=== PATIENT | male | born 1930 | race Caucasian/White ===

== ENCOUNTER 2018-04-10 17:05 | Emergency (ER) | payer MEDICARE, OTHER ==
[~2018-04-10] VITALS: Ht 193 cm; Wt 99.8 kg
[2018-04-10] MEDS ORDERED: GUAI5SYR PO (17:28)
[2018-04-10] MEDS ORDERED: TAMS-12 PO (17:28)
[2018-04-10] MEDS ORDERED: RIVA10TA PO (17:28)
[2018-04-10] MEDS ORDERED: FURO80TA85 PO (17:28)
[2018-04-10] MEDS ORDERED: LACT10SO PO (17:28)
[2018-04-10] MEDS ORDERED: POTA10TA15 PO (17:28)
[2018-04-10] MEDS ORDERED: DOCU-141 PO (17:28)
[2018-04-10] MEDS ORDERED: DILT240C2 PO (17:28)
[2018-04-10] MEDS ORDERED: FINA5TAB11 PO (17:28)
[2018-04-10] MEDS ORDERED: FURO-144 PO (17:28)
[2018-04-10] MEDS ORDERED: CITA10TA9 PO (17:28)
[2018-04-10] MEDS ORDERED: DOXY100C2 PO (17:28)
[2018-04-10 17:31] LABS: BASOPHILS # (AUTO) 0.1 /CMM (0.0-0.2); BASOPHILS % (AUTO) 1.1 % (0.0-2.0); EOSINOPHILS % (AUTO) 6.2 % (0.0-6.0); HEMATOCRIT 32 % (39-51); HEMOGLOBIN 10.3 g/dL (13.5-17.5); LYMPHOCYTES # (AUTO) 1.1 /CMM (0.8-4.8); LYMPHOCYTES % (AUTO) 18.2 % (20.0-44.0); MEAN CORPUSCULAR HGB CONC 32 g/dl (31.0-36.0); MEAN CORPUSCULAR VOLUME 104 fL (80-96); MONOCYTES # (AUTO) 0.5 /CMM (0.1-1.30); MONOCYTES % (AUTO) 7.4 % (2.0-12.0); NEUTROPHILS # (AUTO) 4.1 /CMM (1.8-8.9); NEUTROPHILS % (AUTO) 67.1 % (43.0-81.0); PLATELET COUNT (AUTO) 295 /CMM (150-450); RED BLOOD CELL COUNT(AUTO) 3.06 MIL/uL (4.5-6.0); WHITE BLOOD COUNT (AUTO) 6.2 K/uL (4.3-11.0)
--- NOTE | 2018-04-10 17:31 | NUR ---
initial contact with pt no acute distress , IV started and labs drawn
[2018-04-10 17:41] LABS: CALCIUM, SERUM 8.8 mg/dL (8.5-10.1); CARBON DIOXIDE 30 mmol/L (21-32); CHLORIDE 103 mmol/L (98-107); CREATININE 1.4 mg/dL (0.6-1.3); GLUCOSE 143 mg/dL (74-106); POTASSIUM 3.8 mmol/L (3.5-5.1); SODIUM SERUM 140 mmol/L (136-145); UREA NITROGEN, BLOOD 18 mg/dL (7-18)
[2018-04-10 17:47] LABS: ALANINE AMINOTRANSFERASE 34 U/L (12-78); ALBUMIN 3.2 g/dL (3.4-5.0); ALKALINE PHOSPHATASE 143 U/L (46-116); ASPARTATE AMINOTRANSFERASE 24 U/L (15-37); BILIRUBIN,DIRECT 0.2 mg/dL (0.0-0.2); BILIRUBIN,TOTAL 0.7 mg/dL (0.2-1.0); TOTAL PROTEIN, SERUM 6.4 g/dL (6.4-8.2)
--- NOTE | 2018-04-10 18:00 | NUR ---
right knee xray done
--- NOTE | 2018-04-10 18:40 | NUR ---
pt quiet at present - no distress
--- NOTE | 2018-04-10 19:03 | NUR ---
Dr Soriano discussed results with pt and informed being discharged
--- NOTE | 2018-04-10 19:19 | NUR ---
[facility]
--- NOTE | 2018-04-10 19:19 | NUR ---
[facility] ETA OF 30 MIN TRIP#: [id number]
--- NOTE | 2018-04-10 20:02 | NUR ---
REPORT GIVEN TO [facility] STAFF. TO BE TRANSPORTED BACK TO FACILITY.
[2018-04-10 20:03] VITALS: BP 135/72
== END 2018-04-10 20:10 | disposition home or self-care (01) ==
LOC: ER 17:18
DX: G62.9 Polyneuropathy, unspecified (principal); F03.90 Unspecified dementia, unspecified severity, without behavioral disturbance, psychotic disturbance, mood disturbance, and anxiety; Z88.0 Allergy status to penicillin; Z88.6 Allergy status to analgesic agent
CPT/HCPCS: 36415; 71045; 73564; 80048; 80076; 84484; 85025; 85730; 93005; 93970; 99284; A4606; Z7610